=== PATIENT | male | born 1955 | race Caucasian/White ===

== ENCOUNTER → 2017-12-21 | Outpatient (CLI) | payer OTHER | END | disposition home or self-care (01) | LOC: CFH 16:14 | PROVIDERS: ATTEND Nurse Practitioner Primary Care | DX: M25.511 Pain in right shoulder (principal); I10 Essential (primary) hypertension; E13.319 Other specified diabetes mellitus with unspecified diabetic retinopathy without macular edema; E78.1 Pure hyperglyceridemia; K21.9 Gastro-esophageal reflux disease without esophagitis; C44.91 Basal cell carcinoma of skin, unspecified; D03.9 Melanoma in situ, unspecified ==